=== PATIENT | female | born 1975 | race Caucasian/White ===

== ENCOUNTER 2019-08-10 16:05 | Emergency (ER) | payer SELFPAY ==
[~2019-08-10] VITALS: Ht 170 cm; Wt 90.9 kg
[2019-08-10] MEDS ORDERED: LACTATED RINGERS 1,000 ML IV ONE (16:18)
[2019-08-10] MEDS ORDERED: ONDANSETRON 4 MG/2 ML (SDV) Z0FRAN IVP ONE (16:30)
[2019-08-10 16:52] LABS: BASOPHILS % (AUTO) 0 % (0-10); EOSINOPHILS % (AUTO) 0 % (0-10); HEMATOCRIT 38 % (35-52); HEMOGLOBIN 12.9 G/DL (11.5-16.0); LYMPHOCYTES # (AUTO) 2.4 X 10^3 (1.0-4.0); LYMPHOCYTES % (AUTO) 19 % (12-44); MEAN CORPUSCULAR HEMOGLOBIN 30 PG (25-34); MEAN CORPUSCULAR HGB CONC 34 G/DL (32-36); MEAN CORPUSCULAR VOLUME 90 FL (80-99); MEAN PLATELET VOLUME 10.2 FL (7.4-10.4); MONOCYTES # (AUTO) 0.7 X 10^3 (0.0-1.0); MONOCYTES % (AUTO) 6 % (0-12); NEUTROPHILS # (AUTO) 9.2 X 10^3 (1.8-7.8); NEUTROPHILS % (AUTO) 74 % (42-75); PLATELET COUNT 324 10^3/uL (130-400); RED CELL DISTRIBUTION WIDTH 13.2 % (10.0-14.5); WHITE BLOOD COUNT 12.3 10^3/uL (4.3-11.0)
[2019-08-10 17:08] LABS: CARBON DIOXIDE 23 MMOL/L (21-32); CHLORIDE 108 MMOL/L (98-107); POTASSIUM 3.3 MMOL/L (3.6-5.0); SODIUM 137 MMOL/L (135-145)
[2019-08-10 17:09] LABS: ALANINE AMINOTRANSFERASE 8 U/L (0-55); ALBUMIN 3.9 GM/DL (3.2-4.5); ALKALINE PHOSPHATASE 58 U/L (40-136); BILIRUBIN,TOTAL 0.3 MG/DL (0.1-1.0); BUN/CREATININE RATIO 16; CALCIUM 8.4 MG/DL (8.5-10.1); GFR ESTIMATED > 60; GLUCOSE 154 MG/DL (70-105); MAGNESIUM 1.6 MG/DL (1.6-2.4); SALICYLATE < 5.0 MG/DL (5.0-20.0); TOTAL PROTEIN 6.6 GM/DL (6.4-8.2)
[2019-08-10 17:29] LABS: TSH (THYROID ANALYZER) 0.39 UIU/ML (0.35-4.94)
[2019-08-10 17:38] LABS: ACETAMINOPHEN < 10 UG/ML (10-30)
[2019-08-10 18:03] LABS: BILIRUBIN,URINE NEGATIVE (NEGATIVE); CLARITY,URINE CLEAR; COLOR,URINE YELLOW; GLUCOSE, URINE (UA) NEGATIVE (NEGATIVE); KETONES,URINE NEGATIVE (NEGATIVE); LEUKOCYTE ESTERASE ,URINE NEGATIVE (NEGATIVE); NITRITE,URINE NEGATIVE (NEGATIVE); PH,URINE 6.5 (5-9); PROTEIN,URINE NEGATIVE (NEGATIVE); UROBILINOGEN,URINE NORMAL (NORMAL)
[2019-08-10 18:09] LABS: BACTERIA,URINE NEGATIVE /HPF
[2019-08-10 18:16] LABS: AMPHETAMINE SCREEN, URINE NEGATIVE (NEGATIVE); BENZODIAZEPINES SCREEN URINE NEGATIVE (NEGATIVE); CANNABINOID SCREEN, URINE POSITIVE (NEGATIVE); COCAINE SCREEN URINE NEGATIVE (NEGATIVE); METHAMPHETAMINE SCREEN URINE S NEGATIVE (NEGATIVE)
[2019-08-10 18:17] LABS: BARBITURATE SCREEN URINE NEGATIVE (NEGATIVE); METHADONE STAT NEGATIVE (NEGATIVE); OPIATE SCREEN URINE NEGATIVE (NEGATIVE); OXYCODONE STAT NEGATIVE (NEGATIVE); PROPOXYPHENE STAT NEGATIVE (NEGATIVE); TRICYCLIC ANTIDEPRESSANTS SCRE NEGATIVE (NEGATIVE)
[2019-08-10] MEDS ORDERED: ONDA4TAB11 SL (18:29)
--- NOTE | 2019-08-10 18:29 | ED Psychosocial ---
General Chief Complaint: Psych/Social Disorder Stated Complaint: ANXIETY Nursing Triage Note: AMB TO ROOM IS TRYING TO GET HERSELF OFF MEDS OF KLONOPIN, HYDROCODONE BECAME ANXIOUS CALLED EMS REPORTS INLAST 12 HR TOOK BENADRYL PM ABD Bessie 8hrs TOOK 8 IBUPROFEN 1 MEXLOCAN TODAY. Source: patient, family Exam Limitations: no limitations History of Present Illness Date Seen by Provider: Aug 10, 2019 Time Seen by Provider: 16:10 Initial Comments This 44-year-old woman presents to the emergency room with symptoms of opioid withdrawal. She took her last dose of hydrocodone on Friday, August 08. She smoked some marijuana today and then vomited after eating soup. She has taken a total of 8 doses of Benadryl in the last 24 hours and 8 tablets of ibuprofen in the last 24 hours. She has been taking up to 8 hydrocodone or Percocet per day for long-term treatment of back pain from scoliosis. Dr. Arrieta is her primary care provider. Patient is trying to completely free herself of opioid dependence. She believes her opioid dependence is a significant problem. Allergies and Home Medications Allergies Coded Allergies: No Known Drug Allergies (Unverified , 08/10/19) Home Medications Ondansetron 4 Mg Tab.rapdis, 4 MG SL Q4H PRN for NAUSEA/VOMITING Prescribed by: RADHA FRANCISCO on 08/10/19 1829 Patient Home Medication List Home Medication List Reviewed: Yes Review of Systems Constitutional: see HPI EENTM: no symptoms reported Respiratory: no symptoms reported Cardiovascular: no symptoms reported Gastrointestinal: see HPI Genitourinary: no symptoms reported : No Musculoskeletal: see HPI Skin: no symptoms reported Psychiatric/Neurological: See HPI Past Mdiazxw-Igipxi-Jlibbj Hx Past Med/Social Hx: Reviewed and Corrections made Patient Social History Alcohol Use: Denies Use Recreational Drug Use: Yes Smoking Status: Current Everyday Smoker Recent Foreign Travel: No Contact w/Someone Who Travel: No Recent Infectious Disease Expo: No Past Medical History Surgeries: No Respiratory: No Cardiac: No Neurological: No Genitourinary: No Gastrointestinal: No Musculoskeletal: Yes Arthritis, Scoliosis, Chronic Back Pain HEENT: No Cancer: No Psychosocial: Yes (opioid dependence) Integumentary: No Physical Exam Vital Signs - First Documented 08/10/19 08/10/19 16:05 18:36 Temp 37.6 Pulse 107 Resp 18 B/P (MAP) 148/84 (105) Pulse Ox 97 O2 Delivery Room Air Capillary Refill : Less Than 3 Seconds Height, Weight, BMI Height: '" Weight: lbs. oz. 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, no motor/sensory deficits, alert, normal mood/affect, oriented x 3 Appearance/Memory: appropriate appearance, appropriate insight, neat Behavior/Eye Contact: cooperative, good eye contact, normal speech Skin: normal color, warm/dry Progress/Results/Core Measures Results/Orders Lab Results Laboratory Tests Test 08/10/19 16:36 08/10/19 17:57 Range/Units White Blood Count 12.3 H 4.3-11.0 10^3/uL Red Blood Count 4.25 L 4.35-5.85 10^6/uL Hemoglobin 12.9 11.5-16.0 G/DL Hematocrit 38 35-52 % Mean Corpuscular Volume 90 80-99 FL Mean Corpuscular Hemoglobin 30 25-34 PG Mean Corpuscular Hemoglobin Concent 34 32-36 G/DL Red Cell Distribution Width 13.2 10.0-14.5 % Platelet Count 324 130-400 10^3/uL Mean Platelet Volume 10.2 7.4-10.4 FL Neutrophils (%) (Auto) 74 42-75 % Lymphocytes (%) (Auto) 19 12-44 % Monocytes (%) (Auto) 6 0-12 % Eosinophils (%) (Auto) 0 0-10 % Basophils (%) (Auto) 0 0-10 % Neutrophils # (Auto) 9.2 H 1.8-7.8 X 10^3 Lymphocytes # (Auto) 2.4 1.0-4.0 X 10^3 Monocytes # (Auto) 0.7 0.0-1.0 X 10^3 Eosinophils # (Auto) 0.0 0.0-0.3 10^3/uL Basophils # (Auto) 0.0 0.0-0.1 10^3/uL Sodium Level 137 135-145 MMOL/L Potassium Level 3.3 L 3.6-5.0 MMOL/L Chloride Level 108 H 98-107 MMOL/L Carbon Dioxide Level 23 21-32 MMOL/L Anion Gap 6 5-14 MMOL/L Blood Urea Nitrogen 11 7-18 MG/DL Creatinine 0.70 0.60-1.30 MG/DL Estimat Glomerular Filtration Rate > 60 BUN/Creatinine Ratio 16 Glucose Level 154 H 70-105 MG/DL Calcium Level 8.4 L 8.5-10.1 MG/DL Corrected Calcium 8.5 8.5-10.1 MG/DL Magnesium Level 1.6 1.6-2.4 MG/DL Total Bilirubin 0.3 0.1-1.0 MG/DL Aspartate Amino Transf (AST/SGOT) 10 5-34 U/L Alanine Aminotransferase (ALT/SGPT) 8 0-55 U/L Alkaline Phosphatase 58 40-136 U/L Total Protein 6.6 6.4-8.2 GM/DL Albumin 3.9 3.2-4.5 GM/DL TSH [place] Testing 0.39 0.35-4.94 UIU/ML Serum Test, Qualitative NEGATIVE NEGATIVE Salicylates Level < 5.0 L 5.0-20.0 MG/DL Acetaminophen Level < 10 L 10-30 UG/ML Serum Alcohol < 10 <10 MG/DL Urine Color YELLOW Urine Clarity CLEAR Urine pH 6.5 5-9 Urine Specific [place] 1.005 L 1.016-1.022 Urine Protein NEGATIVE NEGATIVE Urine Glucose (UA) NEGATIVE NEGATIVE Urine Ketones NEGATIVE NEGATIVE Urine Nitrite NEGATIVE NEGATIVE Urine Bilirubin NEGATIVE NEGATIVE Urine Urobilinogen NORMAL NORMAL MG/DL Urine Leukocyte Esterase NEGATIVE NEGATIVE Urine RBC (Auto) NEGATIVE NEGATIVE Urine RBC NONE /HPF Urine WBC NONE /HPF Urine Squamous Epithelial Cells 5-10 /HPF Urine Crystals NONE /LPF Urine Bacteria NEGATIVE /HPF Urine Casts NONE /LPF Urine Mucus NEGATIVE /LPF Urine Culture Indicated NO Urine Opiates Screen NEGATIVE NEGATIVE Urine Oxycodone Screen NEGATIVE NEGATIVE Urine Methadone Screen NEGATIVE NEGATIVE Urine Propoxyphene Screen NEGATIVE NEGATIVE Urine Barbiturates Screen NEGATIVE NEGATIVE Ur Tricyclic Antidepressants Screen NEGATIVE NEGATIVE Urine Phencyclidine Screen NEGATIVE NEGATIVE Urine Amphetamines Screen NEGATIVE NEGATIVE Urine Methamphetamines Screen NEGATIVE NEGATIVE Urine Benzodiazepines Screen NEGATIVE NEGATIVE Urine Cocaine Screen NEGATIVE NEGATIVE Urine Cannabinoids Screen POSITIVE H NEGATIVE My Orders Orders - RADHA BEJARANO MD Acetaminophen (08/10/19 16:18) Alcohol (08/10/19 16:18) Cbc With Automated Diff (08/10/19 16:18) Comprehensive Metabolic Panel (08/10/19 16:18) Drug Screen Stat (Urine) (08/10/19 16:18) Hcg,Qualitative Serum (08/10/19 16:18) Magnesium (08/10/19 16:18) Salicylate (08/10/19 16:18) Thyroid Analyzer (08/10/19 16:18) Ua Culture If Indicated (08/10/19 16:18) Ed Iv/Invasive Line Start (08/10/19 16:18) Ekg Tracing (08/10/19 16:18) Monitor-Rhythm Ecg Trace Only (08/10/19 16:18) Ondansetron Injection (Zofran Injectio (08/10/19 16:30) Lactated Ringers (Lr 1000 Ml Iv Solution (08/10/19 16:18) Potassium Chloride (Tablet) (Klor Con Ta (08/10/19 18:30) Medications Given in ED Current Medications Medications Dose Ordered Sig/Maryanne Route Start Time Stop Time Status Last Admin Dose Admin Lactated Ringer's 1,000 ml @ 0 mls/hr Q0M ONCE IV 08/10/19 16:18 08/10/19 16:21 DC 08/10/19 16:47 1,000 MLS/HR Ondansetron HCl 8 mg ONCE ONCE IVP 08/10/19 16:30 08/10/19 16:31 DC 08/10/19 16:46 8 MG Potassium Chloride 20 meq ONCE ONCE PO 08/10/19 18:30 08/10/19 18:31 DC 08/10/19 18:42 20 MEQ Vital Signs/I&O 08/10/19 08/10/19 16:05 18:36 Temp 37.6 Pulse 107 92 Resp 18 18 B/P (MAP) 148/84 (105) 143/65 Pulse Ox 97 96 O2 Delivery Room Air Blood Pressure Mean: 105 Progress Progress Note : Progress Note Patient received Zofran and a liter of LR. Potassium was found to be a little low. She was given an oral potassium replacement prior to departure. She was feeling significantly improved with these therapies. I've encouraged her to seek out support services and/or outpatient support services. Departure Impression Primary Impression: Opioid withdrawal Additional Impressions: Nausea and vomiting Qualified Codes: R11.2 - Nausea with vomiting, unspecified Hypokalemia Polysubstance abuse Disposition: HOME, SELF-CARE Condition: Improved Departure-Patient Inst. Decision time for Depature: 18:25 Referrals: NO,LOCAL PHYSICIAN (PCP) Primary Care Physician Patient Instructions: Prescription Drug Withdrawal (DC) Add. Discharge Instructions: Return to the emergency room if your symptoms are not tolerated at home. Use Zofran (ondansetron) as prescribed for nausea and vomiting. Drink plenty of clear liquids. Start with a clear liquid diet and gradually advance her diet with small quantities of bland food as tolerated. Consider enrolling in an outpatient treatment program such as the lawn offered at the [facility]. Their phone number is [phone]. Also consider some type of community support group such as [facility], [facility], Narcotics Anonymous, or Alcoholics Anonymous. Avoid the use of any psychoactive substances such as marijuana, alcohol, etc. All discharge instructions reviewed with patient and/or family. Voiced understanding. Scripts Ondansetron (Ondansetron Odt) 4 Mg Tab.rapdis 4 MG SL Q4H PRN for NAUSEA/VOMITING, #20 TAB Prov: RADHA BEJARANO MD 08/10/19 Work/School Note: Work Release Form Date Seen in the Emergency Department: Aug 10, 2019 Return to Work: Aug 13, 2019 Restrictions: No Restrictions RADHA BEJARANO MD Aug 10, 2019 18:29
[2019-08-10] MEDS ORDERED: KCL 10 MEQ TAB (MICRO K) PO ONE (18:30)
[2019-08-10 18:36] VITALS: BP 143/65
[2019-08-11] MEDS ORDERED: HYDR25CA PO (21:51)
[2019-08-11] MEDS ORDERED: SULF-222 PO (21:56)
== END 2019-08-10 18:48 | disposition home or self-care (01) ==
LOC: EDUNIT# 16:05 → ER 16:06
DX: F11.23 Opioid dependence with withdrawal (principal); E87.6 Hypokalemia; F17.200 Nicotine dependence, unspecified, uncomplicated
CPT/HCPCS: 36415; 80053; 80306; 80320; 80329; 81000; 83735; 84443; 84703; 85025; 93005; 93041; 96361; 96374

== ENCOUNTER 2019-08-11 19:05 | Emergency (ER) | payer SELFPAY ==
[~2019-08-11] VITALS: Ht 170 cm; Wt 90.9 kg
[~2019-08-11 19:05] MED LIST: ONDA4TAB11 SL
[2019-08-11 20:20] LABS: BASOPHILS % (AUTO) 0 % (0-10); EOSINOPHILS # (AUTO) 0.1 10^3/uL (0.0-0.3); EOSINOPHILS % (AUTO) 0 % (0-10); HEMATOCRIT 40 % (35-52); HEMOGLOBIN 13.4 G/DL (11.5-16.0); LYMPHOCYTES # (AUTO) 3.1 X 10^3 (1.0-4.0); LYMPHOCYTES % (AUTO) 22 % (12-44); MEAN CORPUSCULAR HEMOGLOBIN 30 PG (25-34); MEAN CORPUSCULAR HGB CONC 34 G/DL (32-36); MEAN CORPUSCULAR VOLUME 89 FL (80-99); MEAN PLATELET VOLUME 9.6 FL (7.4-10.4); MONOCYTES % (AUTO) 7 % (0-12); NEUTROPHILS # (AUTO) 10.2 X 10^3 (1.8-7.8); NEUTROPHILS % (AUTO) 71 % (42-75); PLATELET COUNT 368 10^3/uL (130-400); RED CELL DISTRIBUTION WIDTH 13.4 % (10.0-14.5); WHITE BLOOD COUNT 14.5 10^3/uL (4.3-11.0)
[2019-08-11 20:40] LABS: LYMPHOCYTES % (MANUAL) 30 %; MONOCYTES % (MANUAL) 5 %; NEUTROPHILS % (MANUAL) 65 %; RBC MORPH NORMAL
[2019-08-11 20:42] LABS: ALANINE AMINOTRANSFERASE 8 U/L (0-55); ALBUMIN 4.2 GM/DL (3.2-4.5); ALKALINE PHOSPHATASE 59 U/L (40-136); BILIRUBIN,TOTAL 0.2 MG/DL (0.1-1.0); BUN/CREATININE RATIO 14; CALCIUM 9.3 MG/DL (8.5-10.1); CARBON DIOXIDE 22 MMOL/L (21-32); CHLORIDE 108 MMOL/L (98-107); CREATININE SERUM 0.73 MG/DL (0.60-1.30); GFR ESTIMATED > 60; GLUCOSE 126 MG/DL (70-105); POTASSIUM 3.3 MMOL/L (3.6-5.0); SALICYLATE < 5.0 MG/DL (5.0-20.0); SODIUM 140 MMOL/L (135-145)
[2019-08-11] MEDS ORDERED: KCL 10 MEQ TAB (MICRO K) PO STA (20:44)
[2019-08-11 20:48] LABS: ACETAMINOPHEN < 10 UG/ML (10-30)
--- NOTE | 2019-08-11 21:04 | NUR ---
Recieved report from MARGUERITE Welch to assume care of pt @ this time.
[2019-08-11] MEDS ORDERED: NS IV 1000 ML 1,000 ML IV SCH (21:12)
[2019-08-11] MEDS ORDERED: hydrOXYzine (VISTARIL/ATARAX) 25 MG capsule/tablet PO ONE (21:15)
[2019-08-11 21:43] LABS: BACTERIA,URINE FEW /HPF; BILIRUBIN,URINE NEGATIVE (NEGATIVE); CALCIUM OXALATE CRYSTALS,UR FEW /LPF; CLARITY,URINE SLIGHTLY CLOUDY; COLOR,URINE YELLOW; GLUCOSE, URINE (UA) NEGATIVE (NEGATIVE); KETONES,URINE NEGATIVE (NEGATIVE); LEUKOCYTE ESTERASE ,URINE 1+ (NEGATIVE); NITRITE,URINE NEGATIVE (NEGATIVE); PH,URINE 6 (5-9); PROTEIN,URINE 2+ (NEGATIVE); UROBILINOGEN,URINE NORMAL (NORMAL)
[2019-08-11 21:45] LABS: AMPHETAMINE SCREEN, URINE NEGATIVE (NEGATIVE); BARBITURATE SCREEN URINE NEGATIVE (NEGATIVE); BENZODIAZEPINES SCREEN URINE NEGATIVE (NEGATIVE); CANNABINOID SCREEN, URINE POSITIVE (NEGATIVE); COCAINE SCREEN URINE NEGATIVE (NEGATIVE); METHADONE STAT NEGATIVE (NEGATIVE); METHAMPHETAMINE SCREEN URINE S NEGATIVE (NEGATIVE); OPIATE SCREEN URINE NEGATIVE (NEGATIVE); OXYCODONE STAT NEGATIVE (NEGATIVE); TRICYCLIC ANTIDEPRESSANTS SCRE NEGATIVE (NEGATIVE)
[2019-08-11 21:46] LABS: PROPOXYPHENE STAT NEGATIVE (NEGATIVE)
--- NOTE | 2019-08-11 21:50 | ED General ---
General Chief Complaint: Psych/Social Disorder Stated Complaint: DETOX Nursing Triage Note: PT STATES SHE WAS SEEN IN THIS ER YESTERDAY FOR THE SAME, CC OF NEEDING DETOXED FROM OPIOIDS. PT STATES SHE HAS BEEN TAKING THEM FOR ABOUT 2 YEARS AND HAS HAD NOTHING SINCE FRIDAY. WAS TAKING HYDROCODONE 7.5, FLEXERIL AND OTHERS. Nursing Sepsis Screen: No Definite Risk History of Present Illness Date Seen by Provider: Aug 11, 2019 Time Seen by Provider: 20:05 Initial Comments 44-year-old female returns after being seen yesterday for her a two- year history of taking hydrocodone and then progress and oxycodone. She was started on this for chronic back pain. She denies any withdrawal symptoms of seizure activity. Mainly having anxiety today and trying to keep herself busy. Family called [facility] in [place] and they will possibly get her a bed there tomorrow. She did use marijuana, but none since 08/08/19 Allergies and Home Medications Allergies Coded Allergies: No Known Drug Allergies (Unverified , 08/10/19) Home Medications Hydroxyzine Pamoate 25 Mg Capsule, 25 MG PO Q8H PRN for ANXIETY Prescribed by: NESTOR JIMENEZ on 08/11/19 2151 Ondansetron 4 Mg Tab.rapdis, 4 MG SL Q4H PRN for NAUSEA/VOMITING Prescribed by: RADHA BAKER on 08/10/19 1829 Past Qjoyzox-Ktoycd-Czfczr Hx Patient Social History Alcohol Use: Denies Use Recreational Drug Use: Yes (RX MEDS) Smoking Status: Current Everyday Smoker Type Used: Cigarettes Recent Foreign Travel: No Contact w/Someone Who Travel: No Recent Infectious Disease Expo: No Recent Hopitalizations: No Physical Abuse: No Sexual Abuse: No Mistreated: No Fear: No Seasonal Allergies Seasonal Allergies: Yes Past Medical History Surgeries: No Respiratory: No Cardiac: No Neurological: No : No Last Menstrual Period: Jul 17, 2019 Genitourinary: No Gastrointestinal: No Musculoskeletal: Yes Arthritis, Scoliosis, Chronic Back Pain HEENT: No Cancer: No Psychosocial: Yes (opioid dependence) Anxiety Integumentary: No Physical Exam Vital Signs Vital Signs - First Documented 08/11/19 19:54 Temp 37.2 Pulse 99 Resp 20 B/P (MAP) 113/86 (95) Pulse Ox 98 O2 Delivery Room Air Capillary Refill : Less Than 3 Seconds Height, Weight, BMI Height: '" Weight: lbs. oz. kg; 31.00 BMI Method: Progress/Results/Core Measures Suspected Sepsis Recent Fever Within 48 Hours: Yes Infection Criteria Present: None New/Unexplained Altered Menta: No Sepsis Screen: No Definite Risk SIRS Temperature: Pulse: 99 Respiratory Rate: 20 Laboratory Tests 08/11/19 20:15: White Blood Count 14.5H Blood Pressure 113 /86 Mean: 95 Laboratory Tests 08/11/19 20:15: Creatinine 0.73, Platelet Count 368, Total Bilirubin 0.2 Results/Orders Lab Results Laboratory Tests Test 08/11/19 20:15 08/11/19 21:19 Range/Units White Blood Count 14.5 H 4.3-11.0 10^3/uL Red Blood Count 4.44 4.35-5.85 10^6/uL Hemoglobin 13.4 11.5-16.0 G/DL Hematocrit 40 35-52 % Mean Corpuscular Volume 89 80-99 FL Mean Corpuscular Hemoglobin 30 25-34 PG Mean Corpuscular Hemoglobin Concent 34 32-36 G/DL Red Cell Distribution Width 13.4 10.0-14.5 % Platelet Count 368 130-400 10^3/uL Mean Platelet Volume 9.6 7.4-10.4 FL Neutrophils (%) (Auto) 71 42-75 % Lymphocytes (%) (Auto) 22 12-44 % Monocytes (%) (Auto) 7 0-12 % Eosinophils (%) (Auto) 0 0-10 % Basophils (%) (Auto) 0 0-10 % Neutrophils # (Auto) 10.2 H 1.8-7.8 X 10^3 Lymphocytes # (Auto) 3.1 1.0-4.0 X 10^3 Monocytes # (Auto) 1.0 0.0-1.0 X 10^3 Eosinophils # (Auto) 0.1 0.0-0.3 10^3/uL Basophils # (Auto) 0.0 0.0-0.1 10^3/uL Neutrophils % (Manual) 65 % Lymphocytes % (Manual) 30 % Monocytes % (Manual) 5 % Blood Morphology Comment NORMAL Sodium Level 140 135-145 MMOL/L Potassium Level 3.3 L 3.6-5.0 MMOL/L Chloride Level 108 H 98-107 MMOL/L Carbon Dioxide Level 22 21-32 MMOL/L Anion Gap 10 5-14 MMOL/L Blood Urea Nitrogen 10 7-18 MG/DL Creatinine 0.73 0.60-1.30 MG/DL Estimat Glomerular Filtration Rate > 60 BUN/Creatinine Ratio 14 Glucose Level 126 H 70-105 MG/DL Calcium Level 9.3 8.5-10.1 MG/DL Corrected Calcium 9.1 8.5-10.1 MG/DL Total Bilirubin 0.2 0.1-1.0 MG/DL Aspartate Amino Transf (AST/SGOT) 11 5-34 U/L Alanine Aminotransferase (ALT/SGPT) 8 0-55 U/L Alkaline Phosphatase 59 40-136 U/L Total Protein 7.0 6.4-8.2 GM/DL Albumin 4.2 3.2-4.5 GM/DL TSH [place] Testing 1.11 0.35-4.94 UIU/ML Salicylates Level < 5.0 L 5.0-20.0 MG/DL Acetaminophen Level < 10 L 10-30 UG/ML Serum Alcohol < 10 <10 MG/DL Urine Color YELLOW Urine Clarity SLIGHTLY CLOUDY Urine pH 6 5-9 Urine Specific [place] 1.025 H 1.016-1.022 Urine Protein 2+ H NEGATIVE Urine Glucose (UA) NEGATIVE NEGATIVE Urine Ketones NEGATIVE NEGATIVE Urine Nitrite NEGATIVE NEGATIVE Urine Bilirubin NEGATIVE NEGATIVE Urine Urobilinogen NORMAL NORMAL MG/DL Urine Leukocyte Esterase 1+ H NEGATIVE Urine RBC (Auto) 3+ H NEGATIVE Urine RBC 2-5 H /HPF Urine WBC 2-5 /HPF Urine Squamous Epithelial Cells 2-5 /HPF Urine Crystals PRESENT H /LPF Urine Calcium Oxalate Crystals FEW H /LPF Urine Bacteria FEW H /HPF Urine Casts PRESENT /LPF Urine Hyaline Casts 2-5 H /LPF Urine Mucus LARGE H /LPF Urine Culture Indicated YES Urine Opiates Screen NEGATIVE NEGATIVE Urine Oxycodone Screen NEGATIVE NEGATIVE Urine Methadone Screen NEGATIVE NEGATIVE Urine Propoxyphene Screen NEGATIVE NEGATIVE Urine Barbiturates Screen NEGATIVE NEGATIVE Ur Tricyclic Antidepressants Screen NEGATIVE NEGATIVE Urine Phencyclidine Screen NEGATIVE NEGATIVE Urine Amphetamines Screen NEGATIVE NEGATIVE Urine Methamphetamines Screen NEGATIVE NEGATIVE Urine Benzodiazepines Screen NEGATIVE NEGATIVE Urine Cocaine Screen NEGATIVE NEGATIVE Urine Cannabinoids Screen POSITIVE H NEGATIVE My Orders Orders - TONY,NESTOR PORTAL ARCHITECT Ua Culture If Indicated (08/11/19 20:06) Cbc With Automated Diff (08/11/19 20:06) Comprehensive Metabolic Panel (08/11/19 20:06) Alcohol (08/11/19 20:06) Drug Screen Stat (Urine) (08/11/19 20:06) Acetaminophen (08/11/19 20:06) Salicylate (08/11/19 20:06) Ekg Tracing (08/11/19 20:06) Ed Iv/Invasive Line Start (08/11/19 20:06) Thyroid Analyzer (08/11/19 20:06) Ed Iv/Invasive Line Start (08/11/19 20:06) Manual Differential (08/11/19 20:15) Potassium Chloride (Tablet) (Klor Con Ta (08/11/19 20:44) Ed Iv/Invasive Line Start (08/11/19 21:12) Ns Iv 1000 Ml (Sodium Chloride 0.9%) (08/11/19 21:12) Hydroxyzine Cap/Tab (Vistaril) (08/11/19 21:15) Urine Culture (08/11/19:19) Medications Given in ED Current Medications Medications Dose Ordered Sig/Maryanne Route Start Time Stop Time Status Last Admin Dose Admin Hydroxyzine Pamoate 25 mg ONCE ONCE PO 08/11/19 21:15 08/11/19 21:16 DC 08/11/19 21:18 25 MG Vital Signs/I&O 08/11/19 19:54 Temp 37.2 Pulse 99 Resp 20 B/P (MAP) 113/86 (95) Pulse Ox 98 O2 Delivery Room Air Capillary Refill : Less Than 3 Seconds Blood Pressure Mean: 95 Progress Note : Time: 20:05 Progress Note Patient seen and evaluated, discussed at length with her and her family the effects of opioids and withdrawal symptoms. She is not having any hallucinations, seizure activity, homicidal or suicidal thoughts. Risks associated with using benzodiazepines in their possible addiction were discussed. I would like to try Vistaril 25 mg to help with the anxiety and withdrawal symptoms. She has a good support system at home. She is open to seeing mental he alth at [facility] or inpatient treatment at [facility], they will contact those services tomorrow. Departure Impression Primary Impression: Opioid abuse Additional Impression: UTI (urinary tract infection) Qualified Codes: N30.01 - Acute cystitis with hematuria Disposition: HOME, SELF-CARE Condition: Improved Departure-Patient Inst. Decision time for Depature: 21:50 Referrals: TONY POWELL MD (PCP/Family) Primary Care Physician Patient Instructions: Opioid Use Disorder, Prescription Drug Abuse (DC), Urinary Tract Infection, Adult (DC) Add. Discharge Instructions: Continue with recommendations from Dr. Baker on 08/10/19. Follow up with [facility] or Dr. Uribe/Mandeep at [facility] for medication assisted opioid withdrawal. Call [phone] for 24 hour assistance. Consider other hobbies or activities for distraction. Set short term goals and celebrate small milestones. Can take Vistaril 25 mg every 8 hours for anxiety. You can take Benadryl 25 mg every 8 hours. Increase fluid intake, 8-16 oz of water every 1-2 hours while awake. Return to emergency department for new, urgent health care needs. All discharge instructions reviewed with patient and/or family. Voiced understanding. Scripts Sulfamethoxazole/Trimethoprim (Sulfamethoxazole-Tmp Ds Tablet) 1 Each Tablet 1 EACH PO BID, #10 TAB 0 Refills Prov: NESTOR JIMENEZ 08/11/19 Hydroxyzine Pamoate (Vistaril) 25 Mg Capsule 25 MG PO Q8H PRN for ANXIETY, #30 CAP 0 Refills Prov: NESTOR JIMENEZ 08/11/19 Copy Copies To 1: TONY POWELL MD, AMY ARNP Aug 11, 2019 21:50
[2019-08-11] MEDS ORDERED: HYDR25CA PO (21:51)
[2019-08-11] MEDS ORDERED: SULF-222 PO (21:56)
[2019-08-11] MEDS ORDERED: TRIM/SULFAMETH 160/800 (SEPTRA DS) TAB PO ONE ×2 (21:59→22:00)
[2019-08-11 22:06] VITALS: BP 128/82
== END 2019-08-11 22:07 | disposition home or self-care (01) ==
LOC: EDUNIT# 19:05 → ER 19:06
DX: F11.10 Opioid abuse, uncomplicated (principal); N39.0 Urinary tract infection, site not specified; F41.9 Anxiety disorder, unspecified; F17.210 Nicotine dependence, cigarettes, uncomplicated
CPT/HCPCS: 36415; 80053; 80306; 80320; 80329; 81000; 84443; 85007; 85027; 87088; 93005